=== PATIENT | male | born 1965 | race Caucasian/White ===

== ENCOUNTER 2020-09-30 13:39 | Outpatient (CLI) | payer BC | END 2020-09-30 13:40 | disposition home or self-care (01) | LOC: TBSIIMAG 13:39 | PROVIDERS: ATTEND Neurological Surgery | DX: M47.22 Other spondylosis with radiculopathy, cervical region (principal); M50.11 Cervical disc disorder with radiculopathy, high cervical region | CPT/HCPCS: 72141 ==